=== PATIENT | female | born 1940 | race Caucasian/White ===

== ENCOUNTER → 2016-11-16 | Outpatient (CLI) | payer MEDICARE ==
[~2016-11-16] MED LIST: FERR324T4 PO; NATU65TA PO; TAB-TAB PO; TOBRSUS RIGHT EYE
[2016-11-16 10:33] LABS: MEAN CORPUSCULAR HGB CONC 29.4 % (32.0-36.0)
[2016-11-16 11:19] LABS: MEAN CELL VOLUME 57.9 FL (80.0-100.0); PLATELET COUNT 323 TH/MM3 (150-450); RED BLOOD COUNT 3.35 MIL/MM3 (4.00-5.30); RED CELL DISTRIBUTION WIDTH 17.1 % (11.6-17.2); WHITE BLOOD COUNT 3.6 TH/MM3 (4.0-11.0)
[2016-11-16 11:25] LABS: HEMO FLAGS AUTO DIFF
[2016-11-16 11:26] LABS: HEMATOCRIT 19.4 % (35.0-46.0)
[2016-11-16 11:39] LABS: BANDS 3 % (0-6); BASOPHILS 3 % (0-2); EOSINOPHILS 3 % (0-4); NEUTROPHIL # MANUAL DIFF 2.4 TH/MM3 (1.8-7.7); POLYS (SEG NEUTROPHILS) 65 % (16-70); WBC DIFF SAMPLE 100
[2016-11-16 11:40] LABS: OVALOCYTES 1+ (NORMAL); PLATELET ESTIMATE SMEAR NORMAL (NORMAL); PLATELET MORPHOLOGY NORMAL (NORMAL); SCAN/DIFF FINAL DIFF MANUAL
[2016-11-16 13:18] LABS: ANION GAP 8 MEQ/L (5-15); AST (GOT) 15 U/L (15-37); BICARBONATE 27.2 MEQ/L (21.0-32.0); BLOOD UREA NITROGEN 12 MG/DL (7-18); CHLORIDE 102 MEQ/L (98-107); GLOMERULAR FILTRATION RATE 94 ML/MIN (>89); GLUCOSE,FASTING 90 MG/DL (74-99); POTASSIUM 4.3 MEQ/L (3.5-5.1); SODIUM (NA) 137 MEQ/L (136-145)
[2016-11-16 13:43] LABS: ALKALINE PHOSPHATASE 63 U/L (45-117); ALT (GPT) 16 U/L (10-53); FERRITIN 2 NG/ML (8-252); TOTAL BILIRUBIN ADULT 0.6 MG/DL (0.2-1.0); TRANSFERRIN IRON PROFILE 413 MG/DL (200-360)
== END ==
LOC: OLAB 10:25
PROVIDERS: ATTEND Allergy & Immunology
DX: E78.2 Mixed hyperlipidemia (principal); I50.23 Acute on chronic systolic (congestive) heart failure; R94.6 Abnormal results of thyroid function studies
CPT/HCPCS: 36415; 80053; 82607; 82728; 83540; 83550; 83880; 84443; 85007; 85027

== ENCOUNTER → 2017-08-14 | Outpatient (CLI) | payer MEDICARE ==
[2017-08-14 11:16] LABS: AUTOMATED NEUTROPHIL # 2.7 TH/MM3 (1.8-7.7); BASOPHIL % 0.8 % (0.0-2.0); EOSINOPHIL # 0.2 TH/MM3 (0-0.4); EOSINOPHIL % 5.3 % (0.0-4.0); HEMATOCRIT 42.6 % (35.0-46.0); HEMOGLOBIN 14.1 GM/DL (11.6-15.3); LYMPH % 18.5 % (9.0-44.0); LYMPHOCYTE # 0.8 TH/MM3 (1.0-4.8); MEAN PLATELET VOLUME 7.3 FL (7.0-11.0); MONO % 10.9 % (0.0-8.0); MONOCYTE # 0.4 TH/MM3 (0-0.9); NEUT % 64.5 % (16.0-70.0); PLATELET COUNT 274 TH/MM3 (150-450); RED BLOOD COUNT 4.84 MIL/MM3 (4.00-5.30); WHITE BLOOD COUNT 4.1 TH/MM3 (4.0-11.0)
[2017-08-14 14:03] LABS: ALT (GPT) 18 U/L (10-53); AST (GOT) 19 U/L (15-37); BICARBONATE 26.3 MEQ/L (21.0-32.0); BLOOD UREA NITROGEN 7 MG/DL (7-18); CALCIUM 9.2 MG/DL (8.5-10.1); CHLORIDE 105 MEQ/L (98-107); CHOLESTEROL 213 MG/DL (120-200); CREATININE 0.66 MG/DL (0.50-1.00); GLOMERULAR FILTRATION RATE 88 ML/MIN (>89); GLUCOSE,FASTING 92 MG/DL (74-99); SODIUM (NA) 141 MEQ/L (136-145)
[2017-08-14 14:13] LABS: ALKALINE PHOSPHATASE 64 U/L (45-117); CHOLESTEROL/ HDL RATIO 3.03 RATIO; FERRITIN 19 NG/ML (8-252); HDL CHOLESTEROL 70.1 MG/DL (40.0-60.0); LDL CHOLESTEROL 124 MG/DL (0-99); TOTAL BILIRUBIN ADULT 0.8 MG/DL (0.2-1.0); TOTAL PROTEIN 7.4 GM/DL (6.4-8.2); TRIGLYCERIDES 97 MG/DL (42-150)
== END ==
LOC: OLAB 10:33
PROVIDERS: ATTEND Allergy & Immunology
DX: E78.2 Mixed hyperlipidemia (principal); D50.8 Other iron deficiency anemias; R94.6 Abnormal results of thyroid function studies
CPT/HCPCS: 36415; 80053; 80061; 82728; 84443; 85025